=== PATIENT | female | born 1950 | race Caucasian/White ===

== ENCOUNTER → 2020-03-08 | Outpatient (CLI) | payer MEDICARE | END | disposition home or self-care (01) | LOC: RESCLI 14:47 | DX: E11.69 Type 2 diabetes mellitus with other specified complication (principal); I10 Essential (primary) hypertension; E03.9 Hypothyroidism, unspecified; Z79.4 Long term (current) use of insulin; E78.5 Hyperlipidemia, unspecified; J45.20 Mild intermittent asthma, uncomplicated; Z11.59 Encounter for screening for other viral diseases; Z87.891 Personal history of nicotine dependence; Z98.890 Other specified postprocedural states; Z79.899 Other long term (current) drug therapy ==

== ENCOUNTER → 2020-06-27 | Outpatient (CLI) | payer MEDICARE | END | disposition home or self-care (01) | LOC: RESCLI 00:46 | PROVIDERS: ATTEND Emergency Medicine | DX: E03.9 Hypothyroidism, unspecified (principal); E11.9 Type 2 diabetes mellitus without complications; J45.20 Mild intermittent asthma, uncomplicated; I10 Essential (primary) hypertension; Z79.899 Other long term (current) drug therapy; Z98.890 Other specified postprocedural states ==

== ENCOUNTER → 2020-10-10 | Outpatient (CLI) | payer MEDICARE | END | disposition home or self-care (01) | LOC: RESCLI 00:50 | PROVIDERS: ATTEND Internal Medicine | DX: E11.69 Type 2 diabetes mellitus with other specified complication (principal); I10 Essential (primary) hypertension; J45.20 Mild intermittent asthma, uncomplicated; E03.9 Hypothyroidism, unspecified; Z79.84 Long term (current) use of oral hypoglycemic drugs; Z79.899 Other long term (current) drug therapy ==

== ENCOUNTER → 2021-01-24 | Outpatient (CLI) | payer MEDICARE | END | disposition home or self-care (01) | LOC: RESCLI 01:31 | PROVIDERS: ATTEND Student in an Organized Health Care Education/Training Program | DX: E11.69 Type 2 diabetes mellitus with other specified complication (principal); J45.20 Mild intermittent asthma, uncomplicated; E03.9 Hypothyroidism, unspecified; E78.5 Hyperlipidemia, unspecified; I10 Essential (primary) hypertension; B35.1 Tinea unguium; Z79.84 Long term (current) use of oral hypoglycemic drugs; Z79.899 Other long term (current) drug therapy; Z87.891 Personal history of nicotine dependence ==

== ENCOUNTER → 2021-01-31 | Outpatient (CLI) | payer MEDICARE | END | disposition home or self-care (01) | LOC: US 16:30 | PROVIDERS: ATTEND Family Medicine | DX: N28.1 Cyst of kidney, acquired (principal); N13.30 Unspecified hydronephrosis ==

== ENCOUNTER → 2021-09-10 | Outpatient (CLI) | payer MEDICARE | END | disposition home or self-care (01) | LOC: RESCLI 01:18 | PROVIDERS: ATTEND Internal Medicine Nephrology | DX: I10 Essential (primary) hypertension (principal); E03.9 Hypothyroidism, unspecified; J45.20 Mild intermittent asthma, uncomplicated; E11.69 Type 2 diabetes mellitus with other specified complication; B35.1 Tinea unguium; Z79.899 Other long term (current) drug therapy; Z98.890 Other specified postprocedural states ==

== ENCOUNTER → 2022-07-25 | Outpatient (CLI) | payer MEDICARE | END | disposition home or self-care (01) | LOC: RESCLI 10:26 | PROVIDERS: ATTEND Internal Medicine | DX: I12.9 Hypertensive chronic kidney disease with stage 1 through stage 4 chronic kidney disease, or unspecified chronic kidney disease (principal); E11.22 Type 2 diabetes mellitus with diabetic chronic kidney disease; E11.69 Type 2 diabetes mellitus with other specified complication; N18.9 Chronic kidney disease, unspecified; J45.20 Mild intermittent asthma, uncomplicated; Z87.891 Personal history of nicotine dependence; Z98.890 Other specified postprocedural states; Z79.84 Long term (current) use of oral hypoglycemic drugs; Z79.899 Other long term (current) drug therapy ==

== ENCOUNTER → 2022-08-21 | Outpatient (CLI) | payer MEDICARE | END | disposition home or self-care (01) | LOC: LAB 11:35 | PROVIDERS: ATTEND Physician Assistant Medical | DX: N18.4 Chronic kidney disease, stage 4 (severe) (principal); R06.09 Other forms of dyspnea; R53.83 Other fatigue ==

== ENCOUNTER → 2022-09-02 | Outpatient (CLI) | payer MEDICARE | END | disposition home or self-care (01) | LOC: NM 12:33 | PROVIDERS: ATTEND Physician Assistant Medical | DX: J98.4 Other disorders of lung (principal); R79.89 Other specified abnormal findings of blood chemistry; M41.84 Other forms of scoliosis, thoracic region; I70.0 Atherosclerosis of aorta ==

== ENCOUNTER → 2022-09-27 | Outpatient (CLI) | payer MEDICARE | END | disposition home or self-care (01) | LOC: CT 10:36 | PROVIDERS: ATTEND Physician Assistant Medical | DX: R93.89 Abnormal findings on diagnostic imaging of other specified body structures (principal); I25.10 Atherosclerotic heart disease of native coronary artery without angina pectoris ==

== ENCOUNTER 2023-07-16 07:17 | Emergency (ER) | payer MEDICARE ==
[~2023-07-16] VITALS: Wt 91.7 kg
[2023-07-16 08:01] LABS: BASO # 0.1 10*3/uL (0.0-0.1); BASO % 0.5 % (0.0-1.0); EOS # 0.2 10*3/uL (0.0-0.4); EOS % 1.5 % (1.0-4.0); LYMPH # 1.8 10*3/uL (1.3-4.4); LYMPH % 13.8 % (27.0-41.0); MEAN CELL VOLUME 94.3 fl (81.0-99.0); MEAN CORPUSCULAR HGB 29.6 pg (27.0-31.0); MEAN CORPUSCULAR HGB CONC 31.4 g/dl (33.0-37.0); MONO # 0.5 10*3/uL (0.1-1.0); MONO % 4.2 % (3.0-9.0); NEUT # 10.1 10*3/uL (2.3-7.9); NEUT % 78.5 % (47.0-73.0); PLATELET COUNT AUTOMATED 286 10*3/uL (130-400); RED BLOOD COUNT 2.97 10*6/uL (4.10-5.10); RED CELL DISTRI WIDTH 15.8 % (0-14.5); WHITE BLOOD COUNT 12.9 10*3/uL (4.8-10.8)
[2023-07-16 08:33] LABS: TOTAL PROTEIN 4.8 gm/dL (6.0-8.0)
[2023-07-16] MEDS ORDERED: BUMETANIDE1 MG PO (08:39)
[2023-07-16] MEDS ORDERED: CARVEDILOL25 MG PO (08:39)
[2023-07-16] MEDS ORDERED: HYDRALAZINE HYD50 MG PO (08:40)
[2023-07-16] MEDS ORDERED: LEVOTHYROXINE175 MCG PO (08:41)
[2023-07-16] MEDS ORDERED: LOSARTAN POTASS25 M1 PO (08:41)
[2023-07-16] MEDS ORDERED: VERAPAMIL HCL240 M1 PO (08:42)
[2023-07-16] MEDS ORDERED: CLONIDINE0.3 MG PO (08:42)
[2023-07-16 08:43] LABS: POTASSIUM 6.1 mmol/L (3.4-5.1)
[2023-07-16] MEDS ORDERED: GLIMEPIRIDE4 M1 PO (08:43)
[2023-07-16] MEDS ORDERED: ATORVASTATIN CA40 M1 PO (08:45)
[2023-07-16 11:53] LABS: BILIRUBIN Negative (Negative); BLOOD Negative (Negative); CLARITY Cloudy (Clear); COLOR Yellow (Yellow); GLUCOSE 1+ (Negative); KETONE Negative (Negative); LEUKO ESTERASE Negative (Negative); NITRITE Negative (Negative); UROBILINOGEN 0.2 E.U./dl (0.0-1.0)
[2023-07-16 11:59] LABS: POTASSIUM 6.8 mmol/L (3.4-5.1)
[2023-07-16 12:39] LABS: BACTERIA 3+
[2023-07-16 12:40] LABS: CALCIUM OXALATE CRYSTALS 2+; RBC 0-2 rbc/hpf (0-2)
== END 2023-07-16 17:22 | disposition short-term general hospital (02) ==
LOC: ED 07:17
PROVIDERS: Internal Medicine
DX: N17.9 Acute kidney failure, unspecified (principal); E87.5 Hyperkalemia; N18.9 Chronic kidney disease, unspecified; R57.0 Cardiogenic shock; E87.1 Hypo-osmolality and hyponatremia; I95.9 Hypotension, unspecified; E87.20 Acidosis, unspecified; R00.1 Bradycardia, unspecified; R74.01 Elevation of levels of liver transaminase levels; R73.9 Hyperglycemia, unspecified; J44.9 Chronic obstructive pulmonary disease, unspecified; Z79.899 Other long term (current) drug therapy; Z96.89 Presence of other specified functional implants

== ENCOUNTER → 2023-12-12 | Outpatient (CLI) | payer MEDICARE ==
[~2023-12-12] MED LIST: ATORVASTATIN CA40 M1 PO; BUMETANIDE1 MG PO; CARVEDILOL25 MG PO; CLONIDINE0.3 MG PO; GLIMEPIRIDE4 M1 PO; HYDRALAZINE HYD50 MG PO; LEVOTHYROXINE175 MCG PO; LOSARTAN POTASS25 M1 PO; VERAPAMIL HCL240 M1 PO
== END | disposition home or self-care (01) ==
LOC: RESCLI 01:48
PROVIDERS: ATTEND Internal Medicine
DX: I12.9 Hypertensive chronic kidney disease with stage 1 through stage 4 chronic kidney disease, or unspecified chronic kidney disease (principal); E11.22 Type 2 diabetes mellitus with diabetic chronic kidney disease; N18.9 Chronic kidney disease, unspecified; J45.20 Mild intermittent asthma, uncomplicated; E03.9 Hypothyroidism, unspecified; R60.9 Edema, unspecified; Z79.899 Other long term (current) drug therapy